=== PATIENT | male | born 1950 | race Two or more races ===

== ENCOUNTER 2022-09-20 14:33 | Emergency (ER) | payer OTHER ==
[~2022-09-20] VITALS: Ht 162.6 cm; Wt 72.1 kg
[2022-09-20] MEDS ORDERED: ATORVASTATIN CA10 MG PO (15:12)
[2022-09-20] MEDS ORDERED: VASOTEC20 M1 PO (15:12)
[2022-09-20] MEDS ORDERED: NORVASC10 MG PO (15:13)
== END 2022-09-20 18:03 | disposition home or self-care (01) ==
LOC: ER 14:33
DX: U07.1 COVID-19 (principal); J06.9 Acute upper respiratory infection, unspecified; G44.89 Other headache syndrome